=== PATIENT | male | born 1995 | race African-American/Black ===

== ENCOUNTER 2020-06-24 16:50 | Emergency (ER) | payer OTHER, SELFPAY ==
--- NOTE | ~2020-06-24 | XR_ITS ---
EXAMINATION: XR abdomen/kub 1V DATE: 06/24/2020 17:29 INDICATION: Constipation and rectal pain TECHNIQUE: A supine view of the abdomen on 2 radiographs was obtained. COMPARISON: None. FINDINGS: Small to moderate amount of stool scattered throughout the colon. No dilated gas-filled loops of violette l to suggest obstruction. A few small phleboliths in the left hemipelvis. Lung bases are clear. Heart size is normal. Mild thoracolumbar dextrocurvature. Transitional sacralized L5 segment with unfused spinous process. IMPRESSION: 1. Normal bowel gas pattern with small to moderate amount of scattered colonic stool. Reviewed, dictated and finalized at location A.
[2020-06-24 16:52] VITALS: BP 114/64; PULSE 98; RESP 18; TEMP 36.4; O2SAT 98
--- NOTE | 2020-06-24 17:52 | ED.GENADULT ---
HPI - General Adult General Chief complaint: Unspecified Stated complaint: abdominal pain Time Seen by Provider: 06/24/20 17:07 Source: patient Mode of arrival: ambulatory Limitations: no limitations History of Present Illness HPI narrative: 25-year-old with no major medical problems here with complaints of having rectal pain and constipation for past few days. He states he had a small bowel movement yesterday. He denies any fever chills no history of nausea or vomiting. Onset (ago): day(s) (2) Location: abdomen and pelvis Radiation: non-radiation Severity: mild Pain Consistency: constant Relieving factors: none Exacerbating factors: none Associated symptoms: denies other symptoms Related Data Allergies Allergy/AdvReac Type Severity Reaction Status Date / Time coconut Allergy Swelling Verified 06/24/20 16:57 of the Eye Review of Systems Review of Systems: All systems reviewed & are unremarkable except as noted in HPI and below Constitutional: Constitutional: Reports no additional constitutional complaints Eyes: Eyes: Reports no additional eye complaints ENT: Reports system reviewed and no additional complaints, except as documented Cardiovascular: Cardiovascular: Reports no additional cardiovascular complaints Respiratory: Respiratory: Reports no additional respiratory complaints Gastrointestinal: Gastrointestinal: Reports as per HPI Musculoskeletal: Musculoskeletal: Reports no additional musculoskeletal complaints PMFSH Social History Social History Gender identity (if verbalized by the patient): Male Exam Narrative: Exam Narrative: GENERAL: Well-appearing, well-nourished, and in no acute distress. HEAD: Normocephalic, atraumatic. EYES: PERRLA and EOMI. NECK: Supple. CHEST: Clear to auscultation. No respiratory distress. HEART: Regular rate and rhythm. No murmur heard. Normal peripheral pulses. ABDOMEN: Soft, nontender, nondistended, normal active bowel sounds. EXTREMITIES: Normal range of motion. No edema. SKIN: Warm, dry, no rash. NEURO: No focal deficits. Alert and oriented x3. PSYCH: Normal mood and affect. Course Course Emergency Course: Inform patient about his x-ray findings advised him to drink a lot of fluids take mag citrate as prescribed. Vital Signs Vital signs: Vital Signs Temperature 36.4 C 06/24/20 16:52 Pulse Rate 98 06/24/20 16:52 Respiratory Rate 18 06/24/20 16:52 Blood Pressure 114/64 06/24/20 16:52 Pulse Oximetry 98 06/24/20 16:52 Temperature 36.4 C 06/24/20 16:52 Pulse Rate 98 06/24/20 16:52 Respiratory Rate 18 06/24/20 16:52 Blood Pressure 114/64 06/24/20 16:52 Pulse Oximetry 98 06/24/20 16:52 Medical Decision Making Vital Signs Vital Signs: Vital Signs Temperature 36.4 C 06/24/20 16:52 Pulse Rate 98 06/24/20 16:52 Respiratory Rate 18 06/24/20 16:52 Blood Pressure 114/64 06/24/20 16:52 Pulse Oximetry 98 06/24/20 16:52 Temperature 36.4 C 06/24/20 16:52 Pulse Rate 98 06/24/20 16:52 Respiratory Rate 18 06/24/20 16:52 Blood Pressure 114/64 06/24/20 16:52 Pulse Oximetry 98 06/24/20 16:52 Imaging Data Radiologist's impression: ITS Impressions Abdomen X-Ray 06/24/20 17:34 IMPRESSION: 1. Normal bowel gas pattern with small to moderate amount of scattered colonic stool. Discharge Plan Discharge Clinical Impression: Constipation by delayed colonic transit Patient Disposition: Home, Self-Care Condition: Stable Instructions: Constipation (DC) Prescriptions: New polyethylene glycol 3350 [Miralax] 17 gram/dose powder 17 g PO DAILY Qty: 119 RF: 0 Follow-up/Referrals: PHYSICIAN,DOCUMENT MANAGEMENT TECHNICIAN [Primary Care Provider] - Wilber Bernard MD [Physician] - Time of Disposition: 17:53
[2020-06-24] MEDS: MAGNESIUM CITRATE 300 ML BTL PO (17:56)
== END 2020-06-24 18:04 | disposition home or self-care (01) ==
PROVIDERS: Emergency Provider Family Medicine
DX: K59.01 Slow transit constipation (principal)
CPT/HCPCS: 74018; 99283; A9270

== ENCOUNTER 2020-07-30 13:23 | Emergency (ER) | payer OTHER, SELFPAY ==
[2020-07-30 13:32] VITALS: BP 137/88; PULSE 20; RESP 18; TEMP 36.5; O2SAT 99
--- NOTE | 2020-07-30 13:43 | PC.NURSE ---
Presents to have abscess area re-evaluated and re-packed. Patient state he had I&D to perirectal abscess on Friday (07/29/20) performed at [facility]. He is to have wound packing replaced and dressing changed but he is unable to do this himself. Patient states that his wound was treated in Surgery at [facility]. Patient has no other concerns.
--- NOTE | 2020-07-30 14:41 | ED.SKABFB ---
HPI - Skin/Abscess/Foreign Bdy General Chief complaint: Skin/Abscess/Foreign Body Stated complaint: abscess on rectum Time Seen by Provider: 07/30/20 13:39 Source: patient Mode of arrival: ambulatory Limitations: no limitations History of Present Illness HPI narrative: Patient is a 25 year old male who presents requesting re evaluation and repacking of rectal abscess. Patient reports having surgical incision and drainage at [facility] but is unsure who saw him and did not have a name of a surgeon to follow up. Patient denies taking antibiotics at this time. He reports increased pain. Patient is a poor historian. complaint: abscess/boil Related Data Allergies Allergy/AdvReac Type Severity Reaction Status Date / Time coconut Allergy Swelling Verified 07/30/20 13:47 of the Eye Review of Systems Review of Systems: Narrative: CONSTITUTIONAL: Denies fever, chills, or sweats. EYES: Denies visual changes, redness, or discharge. ENT: Denies rhinorrhea, congestion, sore throat, or otalgia. CARDIOVASCULAR: Denies chest pain, palpitations, or edema. RESPIRATORY: Denies cough or dyspnea. GASTROINTESTINAL: Reports perirectal abscess GENITOURINARY: Denies dysuria or hematuria. SKIN: Denies rash or itching. MUSCULOSKELETAL: Denies back pain, joint pain, or myalgia. NEUROLOGIC: Denies headache, numbness, dizziness, or weakness. PSYCHIATRIC: Denies anxiety or depression. PMFSH Past Medical History Medical History (Updated 07/30/20 @ 16:29 by [facility] Shepard) Migraines Surgical History Surgical History (Updated 07/30/20 @ 14:45 by [facility] Shepard) No significant past surgical history Family History Family History (Updated 07/30/20 @ 14:45 by [facility] Shepard) Other Hypertension Social History Social History Gender identity (if verbalized by the patient): Male Comments At the time of signature, I have reviewed and agree with nursing past medical, surgical, social, and family history unless otherwise noted. Please see nursing chart for further information. There is no relevant family history pertinent to the presenting complaint. Exam Narrative: Exam Narrative: GENERAL: Well-appearing, well-nourished, and in no acute distress. HEAD: Normocephalic, atraumatic. EYES: EOMI. No redness or drainage. Conjunctiva are normal. ENT: Mucous membranes pink and moist. CHEST: No respiratory distress. Clear to auscultation. HEART: Regular rate and rhythm. No murmur appreciated. Normal peripheral pulses. GI: Soft, nontender without rebound, or guarding. No distention. Unable to fully evaluate perirectal abscess, patient unable to tolerate exam, packing noted MUSCULOSKELETAL: No bony tenderness. EXTREMITIES: Normal range of motion. No edema. SKIN: Warm, dry, no rash. NEURO: No focal deficits. Alert and oriented x3. Gait steady. PSYCH: Normal affect. No signs of depression or anxiety. Course Course Emergency Course: Called [facility] to see what procedure and surgeon that patient may have seen 2 days ago. [facility] reports that patient has conscious sedation in ED with surgery resident completing I&D with packing. Patient was to be admitted to [facility] and declined and left AMA. Discussed with patient. Dr. Lewis consulted and reports that packing should be changed and patient to follow up with Dr. Lewis's office tomorrow. Patient declines pack removal and change without sedation. Discussed sedation with Dr. Pena, who offers IM or IV pain medication. Patient declines as he feels he will be unable to tolerate. Patient reports that he will go back to [facility] at this time because of continuity of care. Vital Signs Vital signs: Vital Signs Temperature 36.5 C 07/30/20 13:32 Pulse Rate 20 L 07/30/20 13:32 Respiratory Rate 18 07/30/20 13:32 Blood Pressure 137/88 07/30/20 13:32 Pulse Oximetry 99 07/30/20 13:32 Temperature 36.6 C 07/30/20 16:52 Pulse Rate 84
[2020-07-30 15:21] VITALS: BP 105/63; PULSE 82; RESP 18; TEMP 36.8; O2SAT 100
[2020-07-30 16:52] VITALS: BP 123/66; PULSE 84; RESP 16; TEMP 36.6; O2SAT 100
== END 2020-07-30 16:52 | disposition home or self-care (01) ==
PROVIDERS: Emergency Provider Nurse Practitioner
DX: K61.1 Rectal abscess (principal)
CPT/HCPCS: 99283

== ENCOUNTER 2025-02-18 08:33 | Emergency (ER) | payer OTHER, SELFPAY ==
--- OUTSIDE RECORDS SUMMARY | 2025-02-18 08:35 | XMS_ITS | Encounter Summary ---
Author Organization [facility] Health Address [address] [place] [address] Care Team Providers Care Content Management Specialist Name Role Phone Tommie Ramirez Misael COLLECTION SYSTEMS TECHNICIAN-EVALUATION ENGINEER Primary Care Provider Encounter Details Date Type Department Care Team (Late st Contact Info) Description 05/17/2022 Ophth Exam [facility] [address] [place] [id number] Abdirizak Goldman MD [facility] [address] [id number] Social History Tobacco Use Types Packs/Day Years Used Date Smoking Tobacco: Never Smokeless Tobacco: Never Alcohol Use Standard Drinks/Week Comments No 0 (1 standard drink = 0.6 oz pur e alcohol) AUDIT-C Answer Date Recorded Q1: How often do you have a drink containing alcohol? Never 05/11/2022 Q2: How many drinks containi ng alcohol do you have on a typical day when you are drinking? Patient does not drink Q3: How often do you have si x or more drinks on one occasion? Never 05/11/2022 PHQ-2 Answer Date Recorded PHQ2 TOTAL SCORE 0 04/19/2022 Sex and Gender Information Value Date Recorded Sex Assigned at Not on file Legal Sex Male 6:53 PM DEADENER Gender Identity Not on file Sexual Orientation Not on file documented as of this encounter Functional Status * Is person deaf or have serious hearing difficulty? Answer Date of Assessment Author No 05/11/2022 4:37 PM CDT Dale Nieves RN * Is person blind or have serious difficulty seeing? Answer Date of Assessment Author No 05/11/2022 4:37 PM CDT Dale Nieves RN * Does person have serious difficulty walking/climbing stairs? Answer Date of Assessment Author No 05/11/2022 4:37 PM CDT Dale Nieves RN * Does person have difficulty dressing/bathing? Answer Date of Assessment Author No 05/11/2022 4:37 PM CDT Dale Nieves RN * Does person have difficulty doing errands alone? Answer Date of Assessment Author No 05/11/2022 4:37 PM CDT Dale Nieves RN documented as of this encounter Mental Status * Does person have difficulty concentrating/remembering/making decisions? Answer Entry Date Author No 05/11/2022 4:37 PM Dale Borges RN documented in this encounter Plan of Treatment Not on file documented as of this encounter Goals Goal Patient Goal Type Associated Problems Recent Progress Patient-Stated? Author Safety General On track( 12:58 PM CDT) No Bibi Bianchi RN Note: Expected end date: ongoing Interventions: Be aware of medications that could predispose you to falling Wear non-skid/rubber sole footwear Wear glasses/hearing aid Medication Management General On track( 12:58 PM CDT) Bibi Mercado RN Note: Expected end date: ongoing Interventions: Take all medications as prescribed Let your doctor know right away about any changes in your medications Make sure to request a refill of your medication at least one week prior to your last dose Try the following to manage nausea: Plan when to eat and drink Eat small meals and snacks Have food and drinks that are warm or cool Talk with your doctor or nurse about medications you can take documented as of this encounter Visit Diagnoses Not on filedocumented in this encounter Care Teams Content Management Specialist Relationship Specialty Start Date End Date Tommie Ramirez, OVI-EVALUATION ENGINEER PCP - General 08/11/20 documented as of this encounter
--- OUTSIDE RECORDS SUMMARY | 2025-02-18 08:35 | XMS_ITS | Encounter Summary ---
Author Organization [facility] Address [address] [place] [address] Care Team Providers Care Media Clerk Name Role Phone Tommie Ramirez SALES EXEC-SYSTEMS NAVIGATOR Primary Care Provider Encounter Details Date Type Department Care Team (Late st Contact Info) Description 11/20/2020 Telephone [facility] [address] [place] [address] Sonia Doss MD [address] [phone] Social History Tobacco Use Types Packs/Day Years Used Date Smoking Tobacco: Never Smokeless Tobacco: Never Alcohol Use Standard Drinks/Week Comments No 0 (1 standard drink = 0.6 oz pur e alcohol) Sex and Gender Information Value Date Recorded Sex Assigned at Not on file Legal Sex Male 6:53 PM LIDDER Gender Identity Not on file Sexual Orientation Not on file documented as of this encounter Plan of Treatment Not on file documented as of this encounter Visit Diagnoses Not on filedocumented in this encounter Additional Health Concerns Infection Onset Date Last Indicated Resolved Time COVID-19 Under Investigation 04/11/2022 04/11/2022 04/11/2022 10:05 PM LIDDER COVID-19 Confirmed 04/11/2022 04/11/2022 4:33 AM LIDDER documented as of this encounter Care Teams Media Clerk Relationship Specialty Start Date End Date Tommie Ramirez APRN-SYSTEMS NAVIGATOR PCP - General 08/11/20 documented as of this encounter
--- OUTSIDE RECORDS SUMMARY | 2025-02-18 08:35 | XMS_ITS | Encounter Summary ---
Author Organization [facility] Address [address] [place] [address] Care Team Providers Care Filter Washer And Presser Name Role Phone Tommie Ramirez Misael TRAVELING REPRESENTATIVE-SEAT BUILDER Primary Care Provider Encounter Details Date Type Department Care Team (Late st Contact Info) Description 04/18/2021 Telephone [facility] [address] [place] [address] Sonia Doss MD [address] [phone] Social History Tobacco Use Types Packs/Day Years Used Date Smoking Tobacco: Never Smokeless Tobacco: Never Alcohol Use Standard Drinks/Week Comments No 0 (1 standard drink = 0.6 oz pur e alcohol) PHQ-2 Answer Date Recorded PHQ2 TOTAL SCORE 3 03/26/2021 Sex and Gender Information Value Date Recorded Sex Assigned at Not on file Legal Sex Male 6:53 PM VIDEO PRESENTATION OPERATOR Gender Identity Not on file Sexual Orientation Not on file documented as of this encounter Plan of Treatment Not on file documented as of this encounter Visit Diagnoses Not on filedocumented in this encounter Additional Health Concerns Infection Onset Date Last Indicated Resolved Time COVID-19 Under Investigation 04/11/2022 04/11/2022 04/11/2022 10:05 PM VIDEO PRESENTATION OPERATOR COVID-19 Confirmed 04/11/2022 04/11/2022 4:33 AM VIDEO PRESENTATION OPERATOR documented as of this encounter Care Teams Filter Washer And Presser Relationship Specialty Start Date End Date Tommie Ramirez, TRAVELING REPRESENTATIVE-SEAT BUILDER PCP - General 08/11/20 documented as of this encounter
--- OUTSIDE RECORDS SUMMARY | 2025-02-18 08:35 | XMS_ITS | Encounter Summary ---
Author Organization [facility] Address [address] [place] [address] Care Team Providers Care Gis Administrator Name Role Phone Tommie Ramirez MACHINE FEATHEREDGER AND REDUCER-HAND GLASS CUTTER Primary Care Provider Encounter Details Date Type Department Care Team (Late st Contact Info) Description 12/29/2020 Telephone [facility] [address] [place] [address] Sonia Doss MD [address] [phone] Social History Tobacco Use Types Packs/Day Years Used Date Smoking Tobacco: Never Smokeless Tobacco: Never Alcohol Use Standard Drinks/Week Comments No 0 (1 standard drink = 0.6 oz pur e alcohol) Sex and Gender Information Value Date Recorded Sex Assigned at Not on file Legal Sex Male 6:53 PM WEALTH MANAGEMENT DIRECTOR Gender Identity Not on file Sexual Orientation Not on file documented as of this encounter Plan of Treatment Not on file documented as of this encounter Visit Diagnoses Not on filedocumented in this encounter Additional Health Concerns Infection Onset Date Last Indicated Resolved Time COVID-19 Under Investigation 04/11/2022 04/11/2022 04/11/2022 10:05 PM WEALTH MANAGEMENT DIRECTOR COVID-19 Confirmed 04/11/2022 04/11/2022 4:33 AM WEALTH MANAGEMENT DIRECTOR documented as of this encounter Care Teams Gis Administrator Relationship Specialty Start Date End Date Tommie Ramirez APRN-HAND GLASS CUTTER PCP - General 08/11/20 documented as of this encounter
--- OUTSIDE RECORDS SUMMARY | 2025-02-18 08:35 | XMS_ITS | Encounter Summary ---
Author Organization [facility] Address [address] [place] [address] Care Team Providers Care Him Clerk Name Role Phone Tommie Ramirez STRAIGHTENING MACHINE OPERATOR-CREDIT ADMINISTRATION SPECIALIST Primary Care Provider Encounter Details Date Type Department Care Team (Late st Contact Info) Description 11/24/2020 Telephone [facility] [address] [place] [address] Sonia Doss MD [address] [phone] Social History Tobacco Use Types Packs/Day Years Used Date Smoking Tobacco: Never Smokeless Tobacco: Never Alcohol Use Standard Drinks/Week Comments No 0 (1 standard drink = 0.6 oz pur e alcohol) Sex and Gender Information Value Date Recorded Sex Assigned at Not on file Legal Sex Male 6:53 PM MEDIA SENIOR RECRUITER Gender Identity Not on file Sexual Orientation Not on file documented as of this encounter Plan of Treatment Not on file documented as of this encounter Visit Diagnoses Not on filedocumented in this encounter Additional Health Concerns Infection Onset Date Last Indicated Resolved Time COVID-19 Under Investigation 04/11/2022 04/11/2022 04/11/2022 10:05 PM MEDIA SENIOR RECRUITER COVID-19 Confirmed 04/11/2022 04/11/2022 4:33 AM MEDIA SENIOR RECRUITER documented as of this encounter Care Teams Him Clerk Relationship Specialty Start Date End Date Tommie Ramirez APRN-CREDIT ADMINISTRATION SPECIALIST PCP - General 08/11/20 documented as of this encounter
--- OUTSIDE RECORDS SUMMARY | 2025-02-18 08:35 | XMS_ITS | Clinical Summary ---
Author Organization [facility] Address [address] [place] [address] Care Team Providers Care Painting And Coating Worker Name Role Phone Tommie Ramirez EVAPORATOR-VERTICAL ROLL OPERATOR Primary Care Provider Source Comments [facility],non-owned Affiliates and Associated Physician Practices is amultiple site organization consisting of ambulatory clinics and hospital sitesin [place], [place], [place] and [place]. This disclosure is being madepursuant to the Care Everywhere program and may not contain all information available regarding this patient. Last updated 17.[facility] Allergies Active Allergy Reactions Criticality Noted Date Comments Coconut Oil Itching,Eye Discomfort 07/28/2020 Medications * This document contains information received from the source organization and may not represent a complete record from that organization. * Be aware that medications may not be up to date on this document. Alwaysverify current medications with the patient. pantoprazole EC (Protonix) 20 MG tabletIndications:Ga stroesophageal reflux disease without esophagitis Take 1 (one) tablet by mouth once daily 90 tablet 11/08/19 23 Active psyllium 48.57 % powderIndications:Pa in associated with defecation Take 3 g by mouth once daily 1254 g 3 11/08/19 23 Active Additional Information Patient not taking.Reported on 01/09/2023 bictegravir-emtricit abine-tenofovir (Biktarvy) 50-200-25 MGIndications:Human immunodeficiency virus (HIV) disease ([facility]) Take 1 (one) tablet by mouth once daily 30 tablet 3 01/10/20 23 Active sulfamethoxazole-tri methoprim (Bactrim; Septra) 400-80 MG tabletIndications:AI DS (acquired immune deficiency syndrome) (HCC) Take 1 (one) tablet by mouth once daily 30 tablet 3 01/10/20 23 Active itraconazole (Sporanox) 10 MG/ML oral solutionIndications: Disseminated histoplasmosis,Mesen teric lymphadenopathy TAKE 20 ML BY MOUTH TWICE DAILY 1200 mL 3 01/10/20 23 Active sertraline (Zoloft) 50 MG tabletIndications:Ma preet depressive disorder, single episode with anxious distress Take 0.5 (one-half) tablet by mouth once daily for 7 days, THEN 1 (one) tablet once daily for 83 days. 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 Reports anorexia, insomnia, and lack of motivation towards Pleasurable things. Assessment & Plan (04/04/2022 9:17 AM SIDER MECHANIC): Discussed need for sleep hygiene, regular exercise, and healthful diet Encouraged regualr talk therapy: Refer to [facility] Discussed resuming sertraline: Pt to consider Assessment & Plan (03/27/2021 10:15 AM SIDER MECHANIC): Begin Fluoxietine: FU in 3wk, 6wk, and three months to efficacy Begin talk therapy Gastroesophageal reflux disease without esophagi tis 09/14/2020 Assessment & Plan (04/04/2022 9:15 AM SIDER MECHANIC): DC omeprazole and begin pantoprazole Discussed importance of GERD-friendly diet and eating habits Assessment & Plan (09/14/2020 1:05 PM CDT): Omeprazole 20mg Daily Dietary change Grade IV hemorrhoids 08/24/2020 Assessment & Plan (08/24/2020 12:33 PM CDT): Continue Sitz bath, witch fantasma, and cool compress GI Consult at colonoscopy appt/ surg removal Colitis 08/24/2020 Assessment & Plan (03/27/2021 10:13 AM SIDER MECHANIC): continue current Tx, food journal,and isolation of triggers Keep FU appts with GI and Colorectal Vaccine counseling 08/24/2020 Overview (08/24/2020): Pt resistent to COVID vax rekated to fear Radio Equipment Repairer to risk VS bebefit of vaccine Vs Infection Assessment & Plan (04/04/2022 9:17 AM SIDER MECHANIC): Need pediatric record for HPV sent, Pt to complete Discussed risk V benefits of COVID vaccines Abscess of anal and rectal regions 07/28/2020 Assessment & Plan (03/27/2021 10:12 AM SIDER MECHANIC): I&D Augmentin X7 days Discussed home wound care, S&S of infection, etc. Assessment & Plan (09/14/2020 1:00 PM CDT): I&D new abscess ABX tx Keep appt with colorectal Immunizations Immunization Administration Dates Next Due INFLUENZA VACCINE, TRIV. (AF LURIA, FLUZONE TRIVALENT; 6MO+) (IIV3) 12/26/2017 Covid Moderna primary monova lent 12+ yr 0.5mL 12/24/2020,11/26/2020 DTaP VACCINE IM (6wk-6yrs) 09/07/2002,,02/07/1998,08/17,1997,1997 FLU, HISTORIC VACCINE 12/06/2008 HEP A PED/ADULT VACCINE 10/16/2007,10/08/2005 HEP A PEDS 2 DOSE 10/16/2007,10/08/2005 HEP B VACCINE, PED/ADOL 1997,1997 HIB Hep B 1997 HIB VACCINE 02/07/1998,1997,1997 Hep B, Adjuvanted 06/14/2022 Human Papilloma Virus Nineva lent Vaccine 01/09/2023,06/14/2022,04/19/2022 INFLUENZA VACCINE 01/23/2021,12/06/2008 INFLUENZA VACCINE, QUADR. (F LUZONE; FLULAVAL; FLUARIX; AFLURIA QUADRIVALENT; 6MO+), 0.5 ML (IIV4) 01/09/2023 MENINGOCOCCAL ACWY (MCV4P) VAC IM 06/28/2008 MENINGOCOCCAL ACWY MENVEO 10/04/2011 MMR VACCINE 09/27/2002,09/16/2001,02/07/1998 Meningococcal ACWY (Menquadfi) Vac IM 06/14/2022 ,04/19/2022 PNEUMOCOCCAL PCV20 CONJ VAC IM 04/19/2022 PNEUMOCOCCAL PCV7 CONJ, PEDS 09/16/2001,07/01/19 01 POLIO IPV 09/07/2002, 2,1997,05/20,1997 TDAP (7yrs+) 03/26/2021 TDAP, HISTORIC VACCINE 10/04/2011,06/28/2008 VARICELLA 10/16/2007,02/07/1998 iNFLUENZA VACCINE, RECOM-BENITEZ, QUADR. (FLUBLOCK QUADRIVALENT; 18Y+) (RIV4) 04/03/2022 Family History Medical History Relation Name Comments Hyperlipidemia Father Hypertension Father Hypertension Mother Relation Name Status Comments Brother Alive Father Alive Maternal Grandfather Alive Maternal Grandmother Alive Mother Alive Paternal Grandfather Paternal Grandmother Sister 1 Alive Sister 2 Alive Social History Tobacco Use Types Packs/Day Years Used Date Smoking Tobacco: Never Smokeless Tobacco: Never Tobacco Cessation:Counseling Given: Not Answered Alcohol Use Standard Drinks/Week Comments No 0 [...] more drinks on one occasion? Never 05/11/2022 Overall Financial Resource Strain (CARDIA) Answe r Date Recorded How hard is it for you to pa y for the very basics like food, housing, medical care, and heating? Patient declined 05/30/2022 PHQ-2 Answer Date Recorded Patient Health Questionnaire-2 Score 2 04/24/2023 [facility] - Occupational Stress Questionnaire Answer Date Recorded Do you feel stress - tense, restless, nervous, or anxious, or unable to sleep at night because your mind is troubled all the time - these days? Patient declined 05/30/2022 Hunger Vital Sign Answer Date Recorded Within the past 12 months, y ou worried that your food would run out before you got the money to buy more. Patient declined Within the past 12 months, t he food you bought just didn't last and you didn't have money to get more. Patient declined 07/2022 PRAPARE - Transportation Answer Date Re corded In the past 12 months, has l ack of transportation kept you from medical appointments or from getting medications? Patient declined 05/30/2022 In the past 12 months, has l ack of transportation kept you from meetings, work, or from getting things needed for daily living? Patient declined 05/30/2022 Housing Stability Vital Sign Answer Devan e Recorded In the last 12 months, was t here a time when you were not able to pay the mortgage or rent on time? Patient refused 05/31/19 23 In the last 12 months, how many places have you lived? 1 05/30/2022 In the last 12 months, was t here a time when you did not have a steady place to sleep or slept in a chcf (including now)? Patient refused 05/30/2022 Sex and Gender Information Value Date Recorded Sex Assigned at Not on file Legal Sex Male 6:53 PM SIDER MECHANIC Gender Identity Not on file Sexual Orientation Not on file Last Filed Vital Signs Vital Sign Reading Time Taken Comments Blood Pressure 114/75 04/24/2023 8:25 AM SIDER MECHANIC Pulse 65 04/24/2023 8:25 AM SIDER MECHANIC Temperature 36.4 C (97.6 F) 04/24/2023 8:25 AM SIDER MECHANIC Respiratory Rate 18 01/09/2023 9:39 AM SIDER MECHANIC Oxygen Saturation 99% 01/09/2023 9:39 AM SIDER MECHANIC Inhaled Oxygen Concentration - - Weight 88.9 kg (196 lb) 04/24/2023 8:25 AM SIDER MECHANIC Height 160 cm (5' 3) 01/09/2023 9:39 AM SIDER MECHANIC Body Mass Index 34.72 01/09/2023 9:39 AM SIDER MECHANIC Plan of Treatment Health Maintenance Due Date Last Done Comments ZOSTER VACCINE (1 of 2) 01/05/2016 COVID-19 VACCINE (3 - Moderna risk series) 01/21/2021 12/24/2020, 11/26/2020 DEPRESSION SCREENING 02/25/2024 04/24/2023, 12/30/2022, 12/30/2022, Additional history exists INFLUENZA VACCINE (#1) 2024 , 04/03/2022, 01/23/2021, Additional history exists MENINGOCOCCAL GROUPS A/C/Y/W VACCINE (4 - Risk 2-dose series) 06/15/2027 06/14/2022, 04/19/2022, 10/04/2011, Additional history exists DTAP/TDAP/TD VACCINES (9 - Td or Tdap) 03/26/2031 03/26/2021, 10/04/2011, 06/28/2008, Additional history exists HIB VACCINE Completed 02/07/1998, 07/26, 1997, Additional history exists HEPATITIS C SCREENING Completed 04/19/2022 PNEUMOCOCCAL VACCINE Completed 04/19/2022, 09/16/2001, 06/30/2000 HEPATITIS B VACCINE Completed 06/14/2022, 1997, 1997, Additional history exists HPV VACCINE Completed 01/09/2023, 05/26, 04/19/2022 MENINGOCOCCAL (Group B) VACCINE SHARED DECISION-MAKING Aged Out No longer eligible based on patient's age to complete this topic Goals Goal Patient Goal Type Associated Problems Recent Progress Patient-Stated? Author Safety General On track( 12:58 PM CDT) Bibi Mercado, RN Note: Expected end date: ongoing Interventions: Be aware of medications that could predispose you to falling Wear non-skid/rubber sole footwear Wear glasses/hearing aid Medication Management General On track( 12:58 PM CDT) Bibi Mercado, RN Note: Expected end date: ongoing Interventions: [...] or nurse about medications you can take Procedures Procedure Name Priority Date/Time Associated Diagnosis Comments HEPATITIS C AB W/RFLX TO HCV RNA QN PCR Routine 04/19/2022 12:00 PM SIDER MECHANIC Routine screening for STI (sexually transmitted infection) Immunity status testing from Last 3 Months or Most Recently Relevant to Health Maintenance Results * Hep C Antibody with reflex ([facility]) (04/19/2022 12:00 PM SIDER MECHANIC) Hepatitis C Antibody NON-REACTI VE NON-REACT [facility] Signal to Cut-Off 0.29 <1.00 [facility] Comment: HCV antibody was non-reactive. There is no laboratory evidence of HCV infection. In most cases, no further action is required. However, if recent HCV exposure is suspected, a test for HCV RNA (test code 51108) is suggested. For additional information please refer to http://education.Share Your Brain/faq/IYV61b8 (This link is being provided for informational/ educational purposes only.) Test Performed at: [facility] [address] [id number] LINDEN GERARDO MD Blood BLOOD SPECIMEN / Unknown 04/19/2022 12:00 PM SIDER MECHANIC 04/20/2022 6:28 AM SIDER MECHANIC us [facility] CHEMISTRY ORDERAB LES Final Result [facility] [address] [place] [address] from Last 3 Months or Most Recently Relevant to Health Maintenance Advance Directives * Full Code (Latest Code Status on File) Date Activated Date Inactivated Comments 05/10/2022 10:18 PM 05/31/2022 6:06 PM * Full Code Date Activated Date Inactivated Comments 07/28/2020 2:48 AM 07/28/2020 4:17 PM Care Teams Painting And Coating Worker Relationship Specialty Start Date End Date Tommie Ramirez APRN-CNP PCP - General 08/11/20
--- OUTSIDE RECORDS SUMMARY | 2025-02-18 08:35 | XMS_ITS | Encounter Summary ---
Author Organization [facility] Address [address] [place] [address] Care Team Providers Care Harness Racing Handicapper Name Role Phone JamesTommie DETECTIVE YOUTH BUREAU-PROGRESSIVE CARE UNIT REGISTERED NURSE Primary Care Provider Encounter Details Date Type Department Care Team (Late st Contact Info) Description 07/23/2022 Telephone [facility] - Centralized Scheduling [address] [place] [phone] James Vasquez MD [address] [facility] [place] [address] Social History Tobacco Use Types Packs/Day [...] Patient declined 05/30/2022 PHQ-2 Answer Date Recorded PHQ2 TOTAL SCORE 0 07/18/2022 [facility] [place] [facility] - Occupational Stress [...] place to sleep or slept in a correction (including now)? Patient refused 05/30/2022 Sex and Gender Information Value Date Recorded Sex Assigned at Not on file Legal Sex Male 6:53 PM CLINICAL REVIEW SPECIALIST Gender Identity Not on file Sexual Orientation Not on file COVID-19 Exposure Response Date Recorded In the last 10 days, have yo u been in contact with someone who was confirmed or suspected to have Coronavirus/COVID-19? No / Unsure 07/18/2022 9:30 AM CDT documented as of this encounter Functional Status * Is person deaf or have serious hearing difficulty? Answer Date of Assessment Author No 06/17/2022 1:11 PM CDT Leslye Beatty RN * Is person blind or have serious difficulty seeing? Answer Date of Assessment Author No 06/17/2022 1:11 PM CDT Leslye Beatty RN * Does person have serious difficulty walking/climbing stairs? Answer Date of Assessment Author No 06/17/2022 1:11 PM CDT Leslye Beatty RN * Does person have difficulty dressing/bathing? Answer Date of Assessment Author No 06/17/2022 1:11 PM CDT Leslye Beatty RN * Does person have difficulty doing errands alone? Answer Date of Assessment Author No 06/17/2022 1:11 PM CDT Leslye Beatty RN documented as of this encounter Mental Status * Does person have difficulty concentrating/remembering/making decisions? Answer Entry Date Author No 06/17/2022 1:11 PM CDT Leslye Beatty RN documented in this encounter Miscellaneous Notes * Telephone Encounter - Daysi Carter - 07/23/2022 12:32 PM CDT Pt Ryan wanted the To give him a call he didn't state why just that he thought the Might have called him. I checked his chart I didn't find any documentation stating if the Called him. Pt callback is [phone] documented in this encounter Plan of Treatment [...] on filedocumented in this encounter Care Teams Harness Racing Handicapper Relationship Specialty Start Date End Date Tommie Ramirez APRN-ISIDORO PCP - General 08/11/20 documented as of this encounter
[2025-02-18 09:37] VITALS: BP 126/74; PULSE 84; RESP 16; TEMP 36.5; O2SAT 100
--- OUTSIDE RECORDS SUMMARY | 2025-02-18 10:06 | XMS_ITS | Encounter Summary ---
Author Organization [facility] Address [address] [facility] [place] [address] Care Team Providers Care Engineering Technician Name Role Phone Tommie Ramirez Misael AIRCRAFT MECHANIC ELECTRICAL AND RADIO-LEAD SYSTEMS ENGINEER Primary Care Provider Encounter Details Date Type Department Care Team (Late st Contact Info) Description 05/17/2022 Ophth Exam [facility] [address] [place] [phone] Abdirizak Goldman MD [facility] [address] Social History Tobacco Use Types [...] on file Legal Sex Male 6:53 PM MEDICAL ASSISTANT OB GYN Gender Identity Not on file Sexual Orientation [...] on filedocumented in this encounter Care Teams Engineering Technician Relationship Specialty Start Date End Date Tommie Ramirez, OVI-LEAD SYSTEMS ENGINEER PCP - General 08/11/20 documented as of this encounter
--- OUTSIDE RECORDS SUMMARY | 2025-02-18 10:06 | XMS_ITS | Encounter Summary ---
Author Organization [facility] Address [address] [facility] [place] [address] Care Team Providers Care Dry Janitor Name Role Phone Tommie Ramirez WINE SPECIALIST-CLIENT SOLUTIONS MANAGER Primary Care Provider Encounter Details Date Type Department Care Team (Late st Contact Info) Description 11/20/2020 Telephone [facility] [address] [place] [address] Sonia Doss MD [address] [phone] Social History Tobacco Use Types Packs/Day Years Used Date Smoking Tobacco: Never Smokeless Tobacco: Never Alcohol Use Standard Drinks/Week Comments No 0 (1 standard drink = 0.6 oz pur e alcohol) Sex and Gender Information Value Date Recorded Sex Assigned at Not on file Legal Sex Male 6:53 PM WOOD BORER Gender Identity Not on file Sexual Orientation Not on file documented as of this encounter Plan of Treatment Not on file documented as of this encounter Visit Diagnoses Not on filedocumented in this encounter Additional Health Concerns Infection Onset Date Last Indicated Resolved Time COVID-19 Under Investigation 04/11/2022 04/11/2022 04/11/2022 10:05 PM WOOD BORER COVID-19 Confirmed 04/11/2022 04/11/2022 4:33 AM WOOD BORER documented as of this encounter Care Teams Dry Janitor Relationship Specialty Start Date End Date Tommie Ramirez APRN-CLIENT SOLUTIONS MANAGER PCP - General 08/11/20 documented as of this encounter
--- OUTSIDE RECORDS SUMMARY | 2025-02-18 10:07 | XMS_ITS | Encounter Summary ---
Author Organization [facility] Address [address] [facility] [place] [address] Care Team Providers Care Leather Toggler Name Role Phone Tommie Ramirez WINDOW DRAPER-STEM PROCESSING MACHINE OPERATOR Primary Care Provider Encounter Details Date Type Department Care Team (Late st Contact Info) Description 12/29/2020 Telephone [facility] [address] [place] [address] Sonia Doss MD [address] [phone] Social History Tobacco Use Types Packs/Day Years Used Date Smoking Tobacco: Never Smokeless Tobacco: Never Alcohol Use Standard Drinks/Week Comments No 0 (1 standard drink = 0.6 oz pur e alcohol) Sex and Gender Information Value Date Recorded Sex Assigned at Not on file Legal Sex Male 6:53 PM HELP DESK ENGINEER Gender Identity Not on file Sexual Orientation Not on file documented as of this encounter Plan of Treatment Not on file documented as of this encounter Visit Diagnoses Not on filedocumented in this encounter Additional Health Concerns Infection Onset Date Last Indicated Resolved Time COVID-19 Under Investigation 04/11/2022 04/11/2022 04/11/2022 10:05 PM HELP DESK ENGINEER COVID-19 Confirmed 04/11/2022 04/11/2022 4:33 AM HELP DESK ENGINEER documented as of this encounter Care Teams Leather Toggler Relationship Specialty Start Date End Date Tommie Ramirez APRN-STEM PROCESSING MACHINE OPERATOR PCP - General 08/11/20 documented as of this encounter
--- OUTSIDE RECORDS SUMMARY | 2025-02-18 10:07 | XMS_ITS | Encounter Summary ---
Author Organization [facility] Address [address] [facility] [place] [address] Care Team Providers Care Semiconductor Packages Leak Tester Name Role Phone JamesTommie TARGET MAN-ENGAGEMENT LIAISON Primary Care Provider Encounter Details Date Type Department Care Team (Late st Contact Info) Description 07/23/2022 Telephone [facility] - Centralized Scheduling [address] [place] [phone] James Vasquez MD [address] [facility] [place] [address] Social History Tobacco Use Types [...] Date Recorded PHQ2 TOTAL SCORE 0 07/18/2022 [facility] [place] [facility] - Occupational Stress [...] place to sleep or slept in a skilled nursing (including now)? Patient refused 05/30/2022 Sex and Gender Information Value Date Recorded Sex Assigned at Not on file Legal Sex Male 6:53 PM PUBLIC INTERVIEWER Gender Identity Not on file Sexual Orientation [...] if the Called him. Pt callback is [phone] documented in this encounter Plan of Treatment [...] on filedocumented in this encounter Care Teams Semiconductor Packages Leak Tester Relationship Specialty Start Date End Date Tommie Ramirez APRN-ISIDORO PCP - General 08/11/20 documented as of this encounter
--- OUTSIDE RECORDS SUMMARY | 2025-02-18 10:07 | XMS_ITS | Clinical Summary ---
Author Organization [facility] [employer] Address [address] [place] [address] Care Team Providers Care Head Operator Sulfide Name Role Phone Tommie Ramirez SECURITY GUARD-SECTION CHIEF Primary Care Provider Source Comments [facility],non-owned Affiliates and Associated Physician Practices is amultiple site organization consisting of ambulatory clinics and hospital sitesin [place], [place], [place] and [place]. This disclosure is being madepursuant to the Care Everywhere program and may not contain all information available regarding this patient. Last updated 17.[facility] [employer] Allergies Active Allergy Reactions Criticality Noted Date [...] (Biktarvy) 50-200-25 MGIndications:Human immunodeficiency virus (HIV) disease ([facility]) Take 1 (one) tablet by mouth [...] Diet Rx increased daily exercise as tolerated [id number] 05/25/2021 AIN grade I 05/25/2021 Major depressive disorder, s melinda episode with anxious distress 03/27/2021 Overview (03/27/2021): reports depression-like sx since onset of rectal issies. Reports anorexia, insomnia, and lack of motivation towards Pleasurable things. Assessment & Plan (04/04/2022 9:17 AM DESKTOP ADMINISTRATOR): Discussed need for sleep hygiene, regular exercise, and healthful diet Encouraged regualr talk therapy: Refer to [facility] Discussed resuming sertraline: Pt to consider Assessment & Plan (03/27/2021 10:15 AM DESKTOP ADMINISTRATOR): Begin Fluoxietine: FU in 3wk, 6wk, and three months to efficacy Begin talk therapy Gastroesophageal reflux disease without esophagi tis 09/14/2020 Assessment & Plan (04/04/2022 9:15 AM DESKTOP ADMINISTRATOR): DC omeprazole and begin pantoprazole Discussed importance of GERD-friendly diet and eating habits Assessment & Plan (09/14/2020 1:05 PM CDT): Omeprazole 20mg Daily Dietary change Grade IV hemorrhoids 08/24/2020 Assessment & Plan (08/24/2020 12:33 PM CDT): Continue Sitz bath, witch fantasma, and cool compress GI Consult at colonoscopy appt/ surg removal Colitis 08/24/2020 Assessment & Plan (03/27/2021 10:13 AM DESKTOP ADMINISTRATOR): continue current Tx, food journal,and isolation of triggers Keep FU appts with GI and Colorectal Vaccine counseling 08/24/2020 Overview (08/24/2020): Pt resistent to COVID vax rekated to fear Endoscopy Tech to risk VS bebefit of vaccine Vs Infection Assessment & Plan (04/04/2022 9:17 AM DESKTOP ADMINISTRATOR): Need pediatric record for HPV sent, Pt to complete Discussed risk V benefits of COVID vaccines Abscess of anal and rectal regions 07/28/2020 Assessment & Plan (03/27/2021 10:12 AM DESKTOP ADMINISTRATOR): I&D Augmentin X7 days Discussed home wound [...] Recorded Patient Health Questionnaire-2 Score 2 04/24/2023 [facility] - Occupational Stress [...] on file Legal Sex Male 6:53 PM DESKTOP ADMINISTRATOR Gender Identity Not on file Sexual Orientation Not on file Last Filed Vital Signs Vital Sign Reading Time Taken Comments Blood Pressure 114/75 04/24/2023 8:25 AM DESKTOP ADMINISTRATOR Pulse 65 04/24/2023 8:25 AM DESKTOP ADMINISTRATOR Temperature 36.4 C (97.6 F) 04/24/2023 8:25 AM DESKTOP ADMINISTRATOR Respiratory Rate 18 01/09/2023 9:39 AM DESKTOP ADMINISTRATOR Oxygen Saturation 99% 01/09/2023 9:39 AM DESKTOP ADMINISTRATOR Inhaled Oxygen Concentration - - Weight 88.9 kg (196 lb) 04/24/2023 8:25 AM DESKTOP ADMINISTRATOR Height 160 cm (5' 3) 01/09/2023 9:39 AM DESKTOP ADMINISTRATOR Body Mass Index 34.72 01/09/2023 9:39 AM DESKTOP ADMINISTRATOR Plan of Treatment Health Maintenance Due Date [...] RNA QN PCR Routine 04/19/2022 12:00 PM DESKTOP ADMINISTRATOR Routine screening for STI (sexually transmitted infection) Immunity status testing from Last 3 Months or Most Recently Relevant to Health Maintenance Results * Hep C Antibody with reflex ([facility]) (04/19/2022 12:00 PM DESKTOP ADMINISTRATOR) Hepatitis C Antibody NON-REACTI VE NON-REACT [facility] Signal to Cut-Off 0.29 <1.00 [facility] Comment: HCV antibody was non-reactive. There is no laboratory evidence of HCV infection. In most cases, no further action is required. However, if recent HCV exposure is suspected, a test for HCV RNA (test code 56311) is suggested. For additional information please refer to http://education.TraktoPRO/faq/WEP79r4 (This link is being provided for informational/ educational purposes only.) Test Performed at: [facility] [id number] [id number] LINDEN GERARDO MD Blood BLOOD SPECIMEN / Unknown 04/19/2022 12:00 PM DESKTOP ADMINISTRATOR 04/20/2022 6:28 AM DESKTOP ADMINISTRATOR [facility]MI[facility] ORDERAB LES Final Result [facility] [address] [place] [address] from Last 3 Months or Most Recently Relevant to Health Maintenance Advance Directives * Full Code (Latest Code Status on File) Date Activated Date Inactivated Comments 05/10/2022 10:18 PM 05/31/2022 6:06 PM * Full Code Date Activated Date Inactivated Comments 07/28/2020 2:48 AM 07/28/2020 4:17 PM Care Teams Head Operator Sulfide Relationship Specialty Start Date End Date Tommie Ramirez APRN-CNP PCP - General 08/11/20
--- OUTSIDE RECORDS SUMMARY | 2025-02-18 10:07 | XMS_ITS | Encounter Summary ---
Author Organization [facility] Address [address] [place] [address] Care Team Providers Care Aircraft Seat Upholsterer Name Role Phone Tommie Ramirez OPERATING ENGINEER-CONCRETE STONE FABRICATING SUPERVISOR Primary Care Provider Encounter Details Date Type Department Care Team (Late st Contact Info) Description 11/24/2020 Telephone [facility] [address] [place] [address] Sonia Doss MD [address] [phone] Social History Tobacco Use Types Packs/Day Years Used Date Smoking Tobacco: Never Smokeless Tobacco: Never Alcohol Use Standard Drinks/Week Comments No 0 (1 standard drink = 0.6 oz pur e alcohol) Sex and Gender Information Value Date Recorded Sex Assigned at Not on file Legal Sex Male 6:53 PM HOT ROOM ATTENDANT Gender Identity Not on file Sexual Orientation Not on file documented as of this encounter Plan of Treatment Not on file documented as of this encounter Visit Diagnoses Not on filedocumented in this encounter Additional Health Concerns Infection Onset Date Last Indicated Resolved Time COVID-19 Under Investigation 04/11/2022 04/11/2022 04/11/2022 10:05 PM HOT ROOM ATTENDANT COVID-19 Confirmed 04/11/2022 04/11/2022 4:33 AM HOT ROOM ATTENDANT documented as of this encounter Care Teams Aircraft Seat Upholsterer Relationship Specialty Start Date End Date Tommie Ramirez APRN-CONCRETE STONE FABRICATING SUPERVISOR PCP - General 08/11/20 documented as of this encounter
--- OUTSIDE RECORDS SUMMARY | 2025-02-18 10:07 | XMS_ITS | Encounter Summary ---
Author Organization [facility] Address [address] [place] [address] Care Team Providers Care Hand Stone Polisher Name Role Phone Tommie Ramirez Misael HUMAN SERVICES PROGRAM SPECIALIST-MINING MANAGER Primary Care Provider Encounter Details Date Type Department Care Team (Late st Contact Info) Description 04/18/2021 Telephone [facility] [address] [place] [address] Sonia Doss MD [address] [phone] Social History Tobacco Use Types Packs/Day Years Used Date Smoking Tobacco: Never Smokeless Tobacco: Never Alcohol Use Standard Drinks/Week Comments No 0 (1 standard drink = 0.6 oz pur e alcohol) PHQ-2 Answer Date Recorded PHQ2 TOTAL SCORE 3 03/26/2021 Sex and Gender Information Value Date Recorded Sex Assigned at Not on file Legal Sex Male 6:53 PM INSPECTOR SHELLS Gender Identity Not on file Sexual Orientation Not on file documented as of this encounter Plan of Treatment Not on file documented as of this encounter Visit Diagnoses Not on filedocumented in this encounter Additional Health Concerns Infection Onset Date Last Indicated Resolved Time COVID-19 Under Investigation 04/11/2022 04/11/2022 04/11/2022 10:05 PM INSPECTOR SHELLS COVID-19 Confirmed 04/11/2022 04/11/2022 4:33 AM INSPECTOR SHELLS documented as of this encounter Care Teams Hand Stone Polisher Relationship Specialty Start Date End Date Tommie Ramirez, HUMAN SERVICES PROGRAM SPECIALIST-MINING MANAGER PCP - General 08/11/20 documented as of this encounter
--- NOTE | 2025-02-18 10:15 | ED_ITS ---
HPI - Eye Problem General Chief complaint: Eye Problems Stated complaint: right eye issues Time Seen by Provider: 02/18/25 09:55 History of Present Illness HPI Narrative: Patient is a 30-year-old male who presents to the ER with right eye redness and discomfort. He reports he 1st noticed his symptoms yesterday morning. Patient reports he went for a run and is wondering if he has a foreign body in his eye. This morning he woke up with ?crust in his right eye. He has been treating his right eye with dumb-[id number]-[id number] soothing eyedrops. Patient endorses a history of depression and HIV, for which he takes Biktarvy. He denies any visual changes, photophobia, recent fevers, or significant eyelid swelling. Related Data Allergies Allergy/AdvReac Type Severity Reaction Status Date / Time coconut Allergy Swelling Verified 02/18/25 08:35 [facility] Past Medical History Medical History (Updated 02/18/25 @ 11:13 by Arlen Olson APRN) Migraines Surgical History Surgical History (Updated 07/30/20 @ 14:45 by Jyoti Clemente, DIRECTOR HOSPICE OPERATIONS) No significant past surgical history Family History Family History (Updated 07/30/20 @ 14:45 by Jyoti Clemente, DIRECTOR HOSPICE OPERATIONS) Other Hypertension Social History Social History Gender identity (if verbalized by the patient): Male Exam Narrative: GENERAL: Well appearing, well-nourished, non-toxic, in no acute distress. HEAD: Normocephalic, atraumatic. PERRLA. Redness to sclera. No visible drainage. NECK: Supple. No adenopathy, no masses. RESPIRATORY: Airway patent, respirations nonlabored. Clear to auscultation bilaterally, no rales, rhonchi, wheezing. CARDIOVASCULAR: Regular rate and rhythm without murmurs, rubs, or gallops. Peripheral pulses 2+ and equal bilaterally. ABDOMINAL: Soft, nontender, nondistended, no hepatosplenomegaly. Normoactive BS. MUSCULOSKELETAL: Moves all extremities. Strength/ROM intact without gross deformities. SKIN: Warm, dry, normal color. No rashes. NEURO: A&O X3. Speech clear. Cranial nerves II-XII intact. No ataxic movements. PSYCHIATRIC: Appropriate mood and affect. Normal interaction. Course Vital Signs Vital signs: Vital Signs Temperature 36.5 C 02/18/25 09:37 Pulse Rate 84 02/18/25 09:37 Respiratory Rate 16 02/18/25 09:37 Blood Pressure 126/74 02/18/25 09:37 Pulse Oximetry 100 02/18/25 09:37 Temperature 36.5 C 02/18/25 09:37 Pulse Rate 84 02/18/25 09:37 Respiratory Rate 16 02/18/25 09:37 Blood Pressure 126/74 02/18/25 09:37 Pulse Oximetry 100 02/18/25 09:37 MDM MDM Narrative Medical decision making narrative: Patient is a 30-year-old male who presents to the ER with right eye redness and discomfort. He reports he 1st noticed his symptoms yesterday morning. Patient reports he went for a run and is wondering if he has a foreign body in his eye. This morning he woke up with ?crust in his right eye. He has been treating his right eye with ieed-cyp-czwyorh soothing eyedrops. Patient endorses a history of depression and HIV, for which he takes Biktarvy. He denies any visual changes, photophobia, recent fevers, or significant eyelid swelling. Tetracaine and fluorecin were placed in patient's R eye. A Wood's lamp was used to assess pt's eye. No scratches, foreign objects, or injury was noted to patient's eye ball. Patient Education/Shared MDM: Results of eye exam shared with patient. He will be treated for conjunctivitis. Patient strongly advised to follow-up with his PCP in the next 2-3 days for re-evaluation. He will be discharged home with a prescription for erythromycin ointment. Patient is requesting antibiotic ointment rather than liquid drops. Strict return precautions provided. Patient verbalized understanding and is in agreement with plan. Vital signs stable at time of discharge. All questions answered. Differential Diagnosis Differential Diagnosis: Conjunctivitis, periorbital edema, foreign body in eye, corneal abrasion Discharge Plan Discharge Clinical Impression: Conjunctivitis, right eye, Bacterial conjunctivitis Patient Disposition: Home Condition: Stable Instructions: Antibiotic Form, Conjunctivitis (ED) Additional Instructions: Please return to the ER with any worsening symptoms. Follow-up with your primary care provider in the next 2-3 days for re-evaluation Take all medications as prescribed, including regularly scheduled medications. Please use your eye antibiotic ointment for 5-7 days. Patient Language: Iraqi Prescriptions: New erythromycin 5 mg/gram (0.5 %) ointment 0.5 inch EACH EYE QID 7 Days Qty: 3.5 0RF No Action amoxicillin-pot clavulanate 875-125 mg tablet 1 tablet PO Q12H 5 Days Qty: 10 0RF Follow-up/Referrals: PHYSICIAN,BANK SALES AND SERVICE MANAGER [Primary Care Provider, Internal Medicine] Wilber Bernard MD [Physician, Family Practice] Stand Alone Forms: Work/School Release IP Time of Disposition: 11:14
[2025-02-18] MEDS: ERYTHROMYCIN OPHTH OINTMENT 1 GM TUBE 1 APPLIC EACH EYE (12:03)
== END 2025-02-18 12:04 | disposition home or self-care (01) ==
PROVIDERS: Emergency Provider Registered Nurse
DX: H10.89 Other conjunctivitis (principal)
CPT/HCPCS: 99283; A9270